=== PATIENT | female | born 1955 | race Asian ===

== ENCOUNTER → 2024-05-01 10:13 | Outpatient (REF) | payer MEDICARE, SELFPAY | LOC: RAD 10:13 | PROVIDERS: ATTENDING PHYSICIAN Emergency Medicine; FAMILY PHYSICIAN Family Medicine | DX: M54.50 Low back pain, unspecified (principal) | CPT/HCPCS: 72110 ==

== ENCOUNTER → 2024-05-23 15:28 | Outpatient (REF) | payer MEDICARE, SELFPAY | LOC: RAD 15:28 | PROVIDERS: ATTENDING PHYSICIAN Emergency Medicine | DX: R22.1 Localized swelling, mass and lump, neck (principal); E04.1 Nontoxic single thyroid nodule | CPT/HCPCS: 76536 ==

== ENCOUNTER → 2024-07-03 13:30 | Outpatient (REF) | payer MEDICARE, SELFPAY | LOC: WDC 13:30 | PROVIDERS: ATTENDING PHYSICIAN Family Medicine | DX: Z12.31 Encounter for screening mammogram for malignant neoplasm of breast (principal) | CPT/HCPCS: 77063; 77067 ==

== ENCOUNTER → 2024-07-30 13:46 | Outpatient (REF) | payer MEDICARE, SELFPAY ==
[2024-07-30 15:50] LABS: Erythrocyte Sed Rate 11 mm/hour (0-20)
[2024-07-30 15:55] LABS: C-Reactive Protein < 5.00 mg/L (0.0-10.00)
[2024-07-30 15:58] LABS: HDL Cholesterol 109 mg/dl; Triglyceride 38 mg/dl (10-149); Very Low Density Lipoprotein 7 mg/dl (0-30)
[2024-07-30 16:08] LABS: LDL Cholesterol, Calculated 236 mg/dl; Total Cholesterol 352 mg/dl (50-199)
[2024-07-30 16:44] LABS: Vitamin B12 907 pg/ml (239-931)
[2024-07-31 08:37] LABS: Rheumatoid Agglutinin Less Than 10 IU (<10 IU)
[2024-08-01 18:53] LABS: Lipoprotein a (Lp a) 44 mg/dL (<=29)
[2024-08-01 18:55] LABS: Apolipoprotein B 162 mg/dL (60-117)
[2024-08-02 02:12] LABS: CCP Antibody IgG/IgA 3 Units (0-19)
[2024-08-02 04:43] LABS: ANA, IgG Reflex to HEp-2 None Detected (None Detected)
== END ==
LOC: REG 13:46
PROVIDERS: ATTENDING PHYSICIAN Family Medicine
DX: E78.5 Hyperlipidemia, unspecified (principal); M25.50 Pain in unspecified joint; R41.3 Other amnesia; R26.89 Other abnormalities of gait and mobility
CPT/HCPCS: 36415; 80061; 82172; 82607; 83695; 85652; 86038; 86140; 86200; 86430

== ENCOUNTER → 2024-08-20 12:40 | Outpatient (REF) | payer MEDICARE, SELFPAY | LOC: MRI 3T 12:40 | PROVIDERS: ATTENDING PHYSICIAN Family Medicine; REFERRING PHYSICIAN Specialist | DX: G43.001 Migraine without aura, not intractable, with status migrainosus (principal); R41.0 Disorientation, unspecified | CPT/HCPCS: 70553; A9575 ==

== ENCOUNTER → 2024-10-29 10:55 | Outpatient (REF) | payer MEDICARE, SELFPAY ==
[2024-10-29 12:41] LABS: ALT (SGPT) 19 U/L (0-35); AST (SGOT) 27 U/L (14-36); Albumin 4.6 g/dl (3.5-5.0); Alkaline Phosphatase 52 U/L (38-126); Blood Urea Nitrogen 14 mg/dl (7-17); Calcium 9.1 mg/dl (8.4-10.2); Carbon Dioxide 25 mmol/L (22-30); Chloride 106 mmol/L (98-107); Glucose 110 mg/dl (70-99); HDL Cholesterol 110 mg/dl; Potassium 4.3 mmol/L (3.5-5.1); Sodium 139 mmol/L (135-145); Total Bilirubin 0.4 mg/dl (0.2-1.3); Total Protein 7.2 g/dl (6.3-8.2); Triglyceride 55 mg/dl (10-149); Very Low Density Lipoprotein 11 mg/dl (0-30); eGFR > 60.00
[2024-10-29 12:49] LABS: LDL Cholesterol, Calculated 237 mg/dl; Total Cholesterol 358 mg/dl (50-199)
== END ==
LOC: REG 10:55
PROVIDERS: ATTENDING PHYSICIAN Family Medicine
DX: E78.5 Hyperlipidemia, unspecified (principal)
CPT/HCPCS: 36415; 80053; 80061

== ENCOUNTER → 2024-11-03 09:54 | Outpatient (REF) | payer MEDICARE, SELFPAY | LOC: RAD 09:54 | PROVIDERS: ATTENDING PHYSICIAN Urology; FAMILY PHYSICIAN Family Medicine | DX: M62.89 Other specified disorders of muscle (principal); N39.3 Stress incontinence (female) (male); R39.89 Other symptoms and signs involving the genitourinary system | CPT/HCPCS: 76770; 76856 ==

== ENCOUNTER → 2024-11-11 10:08 | Outpatient (REF) | payer MEDICARE, SELFPAY | LOC: HWRCS 10:08 | PROVIDERS: ATTENDING PHYSICIAN Internal Medicine | DX: R94.31 Abnormal electrocardiogram [ECG] [EKG] (principal); R42 Dizziness and giddiness; R60.0 Localized edema; R00.0 Tachycardia, unspecified | CPT/HCPCS: 93306 ==

== ENCOUNTER → 2024-11-13 14:27 | Outpatient (REF) | payer MEDICARE, SELFPAY | LOC: RAD 14:27 | PROVIDERS: ATTENDING PHYSICIAN Internal Medicine; FAMILY PHYSICIAN Family Medicine | DX: E78.01 Familial hypercholesterolemia (principal); E78.41 Elevated Lipoprotein(a); R94.31 Abnormal electrocardiogram [ECG] [EKG]; R42 Dizziness and giddiness; R00.0 Tachycardia, unspecified; R26.0 Ataxic gait | CPT/HCPCS: 93880 ==

== ENCOUNTER 2024-11-14 10:12 | Outpatient (RCR) | payer MEDICARE, SELFPAY | END 2024-11-14 23:59 | disposition home or self-care (01) | LOC: RPT 10:12 | PROVIDERS: ATTENDING PHYSICIAN Urology; FAMILY PHYSICIAN Family Medicine | DX: R10.2 Pelvic and perineal pain (principal); M62.89 Other specified disorders of muscle; Z73.6 Limitation of activities due to disability | CPT/HCPCS: 97163; 97530 ==

== ENCOUNTER → 2024-11-15 10:47 | Outpatient (REF) | payer MEDICARE, SELFPAY | LOC: RAD 10:47 | PROVIDERS: ATTENDING PHYSICIAN Internal Medicine; FAMILY PHYSICIAN Family Medicine | DX: E78.01 Familial hypercholesterolemia (principal); E78.41 Elevated Lipoprotein(a) | CPT/HCPCS: 75571 ==

== ENCOUNTER → 2024-11-18 09:05 | Outpatient (REF) | payer MEDICARE, SELFPAY | LOC: RCS 09:05 | PROVIDERS: ATTENDING PHYSICIAN Internal Medicine; FAMILY PHYSICIAN Family Medicine | DX: R94.31 Abnormal electrocardiogram [ECG] [EKG] (principal); R42 Dizziness and giddiness; R60.0 Localized edema; R00.0 Tachycardia, unspecified | CPT/HCPCS: 93017; 93350 ==

== ENCOUNTER 2024-11-21 10:02 | Outpatient (RCR) | payer MEDICARE, SELFPAY | END 2024-11-21 23:59 | disposition home or self-care (01) | LOC: RPT 10:02 | PROVIDERS: ATTENDING PHYSICIAN Family Medicine | DX: R26.81 Unsteadiness on feet (principal); Z73.6 Limitation of activities due to disability | CPT/HCPCS: 97110; 97112; 97162 ==

== ENCOUNTER → 2024-11-25 07:02 | Outpatient (REF) | payer MEDICARE, SELFPAY | LOC: RAD 07:02 | PROVIDERS: ATTENDING PHYSICIAN Family Medicine | DX: E78.49 Other hyperlipidemia (principal); I73.9 Peripheral vascular disease, unspecified | CPT/HCPCS: 93922; 93925 ==

== ENCOUNTER 2024-11-28 09:58 | Outpatient (RCR) | payer MEDICARE, SELFPAY | END 2024-11-28 23:59 | disposition home or self-care (01) | LOC: RPT 09:58 | PROVIDERS: ATTENDING PHYSICIAN Family Medicine | DX: R26.81 Unsteadiness on feet (principal); Z73.6 Limitation of activities due to disability | CPT/HCPCS: 97110; 97112 ==

== ENCOUNTER → 2024-12-02 07:17 | Outpatient (REF) | payer MEDICARE, SELFPAY | LOC: HWRCS 07:17 | PROVIDERS: ATTENDING PHYSICIAN Internal Medicine; FAMILY PHYSICIAN Family Medicine | DX: R94.31 Abnormal electrocardiogram [ECG] [EKG] (principal); R94.39 Abnormal result of other cardiovascular function study; R42 Dizziness and giddiness; R06.02 Shortness of breath; E78.01 Familial hypercholesterolemia | CPT/HCPCS: 78452; 93017; A9500 ==

== ENCOUNTER 2024-12-19 10:58 | Outpatient (RCR) | payer MEDICARE, SELFPAY | END 2024-12-19 23:59 | disposition home or self-care (01) | LOC: RPT 10:58 | PROVIDERS: ATTENDING PHYSICIAN Urology; FAMILY PHYSICIAN Family Medicine | DX: R26.81 Unsteadiness on feet (principal); R10.2 Pelvic and perineal pain (principal); M62.89 Other specified disorders of muscle; Z73.6 Limitation of activities due to disability | CPT/HCPCS: 97140; 97530 ==

== ENCOUNTER 2024-12-22 09:33 | Outpatient (RCR) | payer MEDICARE, SELFPAY | END 2025-01-05 10:51 | disposition home or self-care (01) | LOC: RPT 09:33 | PROVIDERS: ATTENDING PHYSICIAN Family Medicine | DX: R26.81 Unsteadiness on feet (principal); Z73.6 Limitation of activities due to disability | CPT/HCPCS: 97110; 97112 ==

== ENCOUNTER 2024-12-29 12:11 | Outpatient (RCR) | payer MEDICARE, SELFPAY | END 2024-12-29 13:46 | disposition home or self-care (01) | LOC: RPT 12:11 | PROVIDERS: ATTENDING PHYSICIAN Urology; FAMILY PHYSICIAN Family Medicine | DX: R26.81 Unsteadiness on feet (principal); Z73.6 Limitation of activities due to disability; M62.89 Other specified disorders of muscle; R10.2 Pelvic and perineal pain | CPT/HCPCS: 97112; 97140; 97530 ==

== ENCOUNTER → 2025-09-23 06:20 | Outpatient (REF) | payer MEDICARE, SELFPAY | LOC: RAD 06:20 | PROVIDERS: ATTENDING PHYSICIAN Psychiatry & Neurology Neurology; FAMILY PHYSICIAN Family Medicine | DX: I65.29 Occlusion and stenosis of unspecified carotid artery (principal); I65.23 Occlusion and stenosis of bilateral carotid arteries | CPT/HCPCS: 93880 ==

== ENCOUNTER → 2025-10-12 14:52 | Outpatient (REF) | payer MEDICARE, SELFPAY ==
[2025-10-12 15:41] LABS: Hematocrit 38.1 % (37.0-47.0); Hemoglobin 12.7 g/dL (12.0-16.0); Mean Corp Hgb Conc. 33.3 g/dL (33.0-37.0); Mean Corpuscular Volume 94.8 fL (81.0-99.0); Nucleated Red Blood Cells % 0 %; Platelet Count 180 10^3/uL (130-400); Red Cell Dist. Width 12.3 % (11.5-14.5)
[2025-10-12 15:57] LABS: ALT (SGPT) 18 U/L (0-35); AST (SGOT) 25 U/L (14-36); Albumin 4.8 g/dl (3.5-5.0); Alkaline Phosphatase 51 U/L (38-126); Blood Urea Nitrogen 17 mg/dl (7-17); Calcium 9.2 mg/dl (8.4-10.2); Carbon Dioxide 23 mmol/L (22-30); Chloride 105 mmol/L (98-107); Glucose 77 mg/dl (70-99); HDL Cholesterol 100 mg/dl; LDL Cholesterol, Calculated 202 mg/dl; Potassium 4.6 mmol/L (3.5-5.1); Sodium 137 mmol/L (135-145); Total Protein 7.5 g/dl (6.3-8.2); Very Low Density Lipoprotein 11 mg/dl (0-30); eGFR > 60.00
[2025-10-12 16:13] LABS: Vitamin D, 25-OH*** 114 ng/mL (30-80)
[2025-10-12 16:35] LABS: Urine Character Clear (Clear)
[2025-10-12 18:41] LABS: Urine Red Blood Cell 0-2 /HPF (0-2)
== END ==
LOC: REG 14:52
PROVIDERS: ATTENDING PHYSICIAN Family Medicine
DX: M81.0 Age-related osteoporosis without current pathological fracture (principal); E78.5 Hyperlipidemia, unspecified; K29.60 Other gastritis without bleeding; E04.1 Nontoxic single thyroid nodule
CPT/HCPCS: 36415; 80053; 80061; 81003; 81015; 82306; 84439; 84443; 85025